=== PATIENT | male | born 1955 | race African-American/Black ===

== ENCOUNTER 2017-05-10 04:40 | Emergency (ER) | payer MEDICAID ==
[2017-05-10 04:54] VITALS: BP 136/99; PULSE 68; RESP 16; TEMP 97.3; O2SAT 84
[2017-05-10] MEDS ORDERED: IBUPROFEN 200 MG TAB PO ONE (05:50)
--- NOTE | 2017-05-10 05:50 | EDPHY ---
H & P Stated Complaint: "PAIN ALL OVER BODY" Time Seen by Provider: 05/10/17 05:58 HPI/ROS: HPI The patient presents brought in by ambulance for body pain. He says he is homeless, usually lives in [place], has been riding the bus all night. He says he walks a lot and complains of foot pain bilaterally. This is achy in nature and occurs when he walks. He does not have any redness, fever, numbness or tingling. He has had foot pain for many years. REVIEW OF SYSTEMS Constitutional: No fever, no chills. Eyes: No discharge. ENT: No sore throat. Cardiovascular: No chest pain, no palpitations. Respiratory: No cough, no shortness of breath. Gastrointestinal: No abdominal pain, no vomiting. Genitourinary: No hematuria. Musculoskeletal: No back pain. Skin: No rashes. Neurological: No headache. PMHx: Possible COPD Soc Hx: Homeless PHYSICAL General Appearance: Alert, no distress Eyes: Pupils equal and round no pallor or injection ENT, Mouth: Mucous membranes moist Respiratory: There are no retractions, lungs are clear to auscultation Cardiovascular: Regular rate and rhythm Gastrointestinal: Abdomen is soft and non-tender, no masses, bowel sounds normal Neurological: A&O, moves all extremities Skin: Warm and dry, no rashes Musculoskeletal: Neck is supple non tender Extremities: symmetrical, full range of motion Psychiatric: Patient is oriented X 3, there is no agitation Source: Patient, EMS Exam Limitations: No limitations - Personal History Current Tetanus Diphtheria and Acellular Pertussis (TDAP): Unsure - Medical/Surgical History Other PMH: PT REPORTS DOES NOT KNOW HX. - Social History Smoking Status: Heavy smoker Constitutional: Initial Vital Signs Temperature (C) 36.3 C 05/10/17 04:51 Heart Rate 68 05/10/17 04:51 Respiratory Rate 16 05/10/17 04:51 Blood Pressure 136/99 H 05/10/17 04:51 O2 Sat (%) 84 L 05/10/17 04:51 O2 Delivery Mode Room Air Allergies/Adverse Reactions: Unable to Assess Allergy (Unverified 05/10/17 04:51) Home Medications: Medication Instructions Recorded Unobtainable 05/10/17 Medical Decision Making Differential Diagnosis: 61-year-old male, homeless and brought in by ambulance for foot pain after walking a long distance. He denies any other complaints. On arrival, he is initially hypoxic at 84%, however during my interview his saturations were 93% and he was never short of breath. Lungs are clear. His feet although exhibit poor hygiene are normal appearing without any signs of infection or injury. I have offered him ibuprofen and Tylenol and he will be discharged. Differential diagnosis considered includes cellulitis, DVT, trench foot. Departure - Departure Disposition: Home, Routine, Self-Care Clinical Impression: Foot pain, bilateral, Homelessness Condition: Good Instructions: Arthralgia (ED) Additional Instructions: Please change your socks daily. If possible wash your feet once a day. Referrals: [facility],. [Clinic] - As per Instructions
== END 2017-05-10 06:08 | disposition home or self-care (01) ==
DX: M79.671 Pain in right foot (principal); M79.672 Pain in left foot; F17.200 Nicotine dependence, unspecified, uncomplicated; Z59.0 Homelessness